=== PATIENT | female | born 1995 | race African-American/Black ===

== ENCOUNTER → 2023-03-01 09:33 | Outpatient (REF) | payer OTHER, SELFPAY | LOC: HO.CARD 09:33 | PROVIDERS: PCP Internal Medicine; Visit Provider Psychiatry & Neurology Neurology | DX: R55 Syncope and collapse (principal) | CPT/HCPCS: 93225 ==

== ENCOUNTER 2023-07-26 14:21 | Emergency (ER) | payer OTHER, SELFPAY ==
--- NOTE | 2023-07-26 14:32 | ECG_ITS ---
Test Reason : WEAKNESS Blood Pressure : / mmHG Vent. Rate : 083 BPM Atrial Rate : 083 BPM P-R Int : 174 ms QRS Dur : 082 ms QT Int : 378 ms P-R-T Axes : -04 067 015 degrees QTc Int : 444 ms Normal sinus rhythm Nonspecific T wave abnormality Abnormal ECG No previous ECGs available Referred By: Anurag Agudelo Electronically Signed By:Gustavo Meier
--- NOTE | 2023-07-26 14:35 | ED_ITS ---
HPI - General Adult General Chief complaint: Neuro Symptoms/Deficit Stated complaint: speech changes Time Seen by Provider: 07/26/23 14:39 Source: family Mode of arrival: wheelchair History of Present Illness HPI narrative: Pt was having EEG as outpatient for w/u of possible seizure and started to have slurred speech and tremors,this symtoms has been happening for at least 1 Month ,she was seen at [facility] and by our neurologist Dr Willoughby who scheduled the EEG.Franchesca tells me she has hx of migraine as well and she respond well to reglan Onset (ago): hour(s) (1) Radiation: non-radiation Severity: moderate Related Data Allergies Allergy/AdvReac Type Severity Reaction Status Date / Time sertraline [From Zoloft] AdvReac aphasia Verified 07/26/23 14:32 Review of Systems 2 ENT: Reports system reviewed and no additional complaints, except as documented Cardiovascular: Cardiovascular: Reports no additional cardiovascular complaints Neurologic: Comments: episodes of slurred speech ? seizure [facility] Past Medical History [facility] Narrative: migraine STERN Social History Social History Smoked in Last 30 Days: No Use of substances other than those prescribed or required for medical reasons: No Advance Directives: No Advance Directives Information Provided: No Patient : No Physical Exam ED Vital Signs: Vital Signs - 24 hr 07/26/23 14:43 07/26/23 16:25 07/26/23 18:44 Temperature 98 F 97.8 F Pulse Rate 74 80 74 Respiratory Rate 16 18 14 Blood Pressure 121/46 L 118/58 L 139/70 Pulse Oximetry 98 97 98 Oxygen Delivery Method Room Air Room Air Room Air 07/26/23 20:14 Temperature 98.0 F Pulse Rate 83 Respiratory Rate 18 Blood Pressure 125/66 Pulse Oximetry 100 Oxygen Delivery Method Room Air BMI result Body Mass Index 34.5 Const General: cooperative, comfortable and no acute distress Orientation/consciousness: patient oriented x3 HENMT Head: Yes normal to inspection General nose exam: Normal external nose present Face and sinus: Yes normal facial exam Mouth: Normal oral and palatal mucosa present Neck Neck: Yes normal visual inspection Chest Chest palpation & inspection: normal inspection of the chest Resp Effort & Inspection: normal respiratory effort Auscultation: clear to auscultation bilaterally Cardio Jugular venous distension: no JVD Rate: regular rate Rhythm: regular rhythm GI Inspection: Yes normal to inspection Palpation (GI): Soft to palpation Auscultation: normal bowel sounds Skin General skin exam: no rashes or lesions noted Lesions: no lesions Rashes: no rashes Wounds: no wounds Neuro General: patient oriented x3 Course Reevaluation(s) Reevaluation #1: received 1 mg of lorazepam much better,I spoke with her neurologist Dr dillard he tell me that pt had w/u at [facility] including cta head and neck normal,therefore I do not think I need to do imaging Time: 14:50 Reevaluation #2: stable sleeping Time: 15:30 Reevaluation #3: signed out to Dr Merna solorio pending waiting from record of [facility],I am off shift now Time: 16:08 Medications Administered Discontinued Medications Generic Name Dose Route Start Last Admin Trade Name Freq PRN Reason Stop Dose Admin Sodium Chloride 1,000 mls @ 999 mls/hr 07/26/23 14:45 07/26/23 15:50 Ns IVCONT 07/26/23 15:45 Infused .Q1H1M ELLE Infusion Lorazepam 1 mg 07/26/23 14:33 07/26/23 14:49 Lorazepam 2 Mg/Ml Vial IVPUSH 07/26/23 14:34 1 mg ONCE ONE Administration Meclizine HCl 50 mg 07/26/23 18:03 07/26/23 18:43 Meclizine Hcl 25 Mg Tablet PO 07/26/23 18:04 50 mg ONCE ONE Administration Medical Decision Making Medical Decision Making MDM Narrative: Patient presented with slurred speech after EEG weakness shakiness we get labs I will talk to the neurologist reviewed the records from [facility] -I received sign-out from Dr. Agudelo. -my interpretation of labs: Normal hematology, normal chemistry, urinalysis shows a small amount of leukocyte esterase but squamous epithelial cells are present as well. Patient has no UTI symptoms. Antibiotics not indicated. Toxicology negative. -patient was able to ambulate without any assistance to the bathroom per patient's techs a nurse. -I reviewed the records from [facility]. Patient has had multiple similar episodes, seen by Neurology, head CT scans in mid June do not show any acute abnormality -patient states that she feels much better than when she initially 1st came in, patient states she feels ready to be discharged. -discussed with the patient to call Dr. Dillard to schedule an appointment, they are still trying to figure out her dose for migraine medications. Differential Diagnosis Differential Diagnoses: The differential diagnosis associated with the presentation includes Differential diagnosis is broad including epilepsy/nonepileptic seizure/anxiety Admission/Observation Consideration of admission/observation: Escalation of care including admission/observation considered Consult Healthcare Provider Management of the patient was discussed with: Rn Psychiatric spoke with pt neurologist Lab Data 07/26/23 15:05 07/26/23 16:16 Labs: Lab Results 07/26/23 07/26/23 07/26/23 Range/Units 15:05 16:16 20:36 WBC 5.8 (4.8-10.8) X10*3/uL RBC 4.80 (4.20-5.50) X10*6/uL Hgb 12.8 (12.0-16.0) g/dl Hct 38.9 (37.0-47.0) % MCV 81.0 (80.0-98.0) fL MCH 26.7 L (27.0-33.0) pg MCHC 32.9 (31.0-35.0) g/dl RDW 14.3 (11.0-16.0) % Plt Count 314 (160-400) X10*3/uL MPV 10.2 (9.4-12.3) fL Immature Gran % (Auto) 0.2 (0.0-0.4) % Neut % (Auto) 34.5 L (45-73) % Lymph % (Auto) 52.8 H (20-40) % Bailey % (Auto) 8.9 (2-11) % Eos % (Auto) 3.1 (0-4) % Baso % (Auto) 0.5 (0-2) % Lymph # (Auto) 3.0 (1.2-4.9) X10*3/uL Bailey # (Auto) 0.5 (0.1-1.2) X10*3/uL Eos # (Auto) 0.2 (0.0-0.4) X10*3/uL Baso # (Auto) 0.0 (0.0-0.2) X10*3/uL Abs Immat Gran (auto) 0.01 (0.00-0.03) X10*3/uL Absolute Neuts (auto) 2.0 (2.0-8.3) x10*3/uL Absolute Nucleated RBC 0.000 (0.0-0.012) X10*3/uL Nucleated RBC % (auto) 0.0 (0.0-0.2) /100WBC Hold Purple Top SEE NOTE Sodium 140 (135-145) mmol/L Potassium 3.8 (3.3-5.1) mmol/L Chloride 111 H (96-108) mmol/L Carbon Dioxide 23 (22-29) mmol/L Anion Gap 10 L (12-20) BUN 8 L (9-16) mg/dL Creatinine 0.89 (0.5-1.4) mg/dL Estim Creat Clear Calc 117.2 Estimated GFR > 60 Random Glucose 77 (60-115) mg/dL Calcium 9.2 (8.4-10.2) mg/dL Total Bilirubin 0.6 (0.0-1.0) mg/dL AST 22 (5-31) U/L ALT 26 (0-31) U/L Alkaline Phosphatase 19 L (39-117) U/L Troponin I High Sens < 2.7 (<3.5-17.0) ng/L Total Protein 7.2 (6.5-8.0) g/dL Albumin 4.1 (3.5-5.0) g/dL Beta HCG, Quant < 2 mIU/mL Urine Color Yellow Urine Appearance Clear Urine pH 6.0 (5.0-9.0) Ur Specific Beeson 1.010 (1.005-1.025) Urine Protein Negative (Neg-Trace) mg/dL Urine Glucose (UA) Negative (Negative) mg/dL Urine Ketones Trace (Negative) mg/dL Urine Blood Negative (Negative) Urine Nitrite Negative (Negative) Ur Leukocyte Esterase Small (1+) H (Negative) Urine RBC 0-2 (0-2) /HPF Urine WBC 0-5 (0-5) /HPF Ur Squamous Epith Cells 3-5 (0-2) /HPF Urine Bacteria None Seen (None Seen) Hyaline Casts 0-2 (0-2) /LPF Urine Opiates Screen Not Detected (Not Detect) Urine Fentanyl Screen Not Detected (Not Detect) Ur Barbiturates Screen Not Detected (Not Detect) Ur Phencyclidine Scrn Not Detected (Not Detect) Ur Amphetamines Screen Not Detected (Not Detect) U Benzodiazepines Scrn Not Detected (Not Detect) Urine Cocaine Screen Not Detected (Not Detect) U Marijuana (THC) Screen Not Detected (Not Detect) Critical Care Time Critical Care Time Critical Care Time: Yes Total Critical Care Time: 60 Attestation: I have personally provided critical care time. Time includes review of lab data, radiology results, discussion with consultants, and monitoring for potential decompensation. Intervention performed as documented. Discharge Plan Discharge Clinical Impression: Seizure Patient Disposition: Home, Self-Care Instructions: Nonepileptic Seizures (ED) Additional Instructions: Please follow-up with your primary care physician tomorrow. If you have any worsening or new symptoms, please return to the emergency room or call 911 Referrals: Nael Dillard MD [Physician] - 07/29/23
[2023-07-26 14:43] VITALS: BP 121/46; PULSE 74; RESP 16; TEMP 36.6; O2SAT 98; BMI 34.5
[2023-07-26] MEDS: LORazepam 2 MG/ML VIAL 1 MG IVPUSH (14:49)
[2023-07-26] MEDS: 0.9 % Sodium Chloride 1,000 ML 999 ML IVCONT (14:49)
--- NOTE | 2023-07-26 14:56 | PC.NURSE ---
a&ox4. vss and up to date. nsr on the conveyor monitor. pt went to outpatient appt for an EEG to be completed. during EEG, pt had sudden onset speech changes, extreme headache, dizziness, and LE weakness bilaterally when flashing lights portion of the test was happening. pt verbalizing only sx include dizziness at this time. pt states lights are bothering her. lights dimmed to promote comfort. neuros intact. strength equal in the UE bilaterally. weakness noted to the LE bilaterally. face symmetrical. seizure precautions in place. pt passed swallow evaluation w/o difficulty. no sob/wob noted. respirations even and unlabored. 20gIV placed in the right AC. ativan/IVF administered per provider order. pt seen by ED provider. plan of care ongoing at this time. call olivarez placed within reach.
[2023-07-26 15:12] LABS: MANUAL DIFF FLAG NO
[2023-07-26 15:13] LABS: Basophils Percent Auto 0.5 % (0-2); Eosinophils Absolute Auto 0.2 X10*3/uL (0.0-0.4); Eosinophils Percent Auto 3.1 % (0-4); Hematocrit 38.9 % (37.0-47.0); Hemoglobin 12.8 g/dl (12.0-16.0); Imm Gran Abs Auto 0.01 X10*3/uL (0.00-0.03); Imm Gran Pct Auto 0.2 % (0.0-0.4); Lymphocytes Percent Auto 52.8 % (20-40); Mean Corpuscular HGB Conc 32.9 g/dl (31.0-35.0); Mean Corpuscular Hemoglobin 26.7 pg (27.0-33.0); Mean Platelet Volume 10.2 fL (9.4-12.3); Monocytes Absolute Auto 0.5 X10*3/uL (0.1-1.2); Monocytes Percent Auto 8.9 % (2-11); Neutrophils Percent Auto 34.5 % (45-73); Platelet Count 314 X10*3/uL (160-400); Red Cell Distribution Width 14.3 % (11.0-16.0); White Blood Count 5.8 X10*3/uL (4.8-10.8)
[2023-07-26 15:48] LABS: Troponin-I High Sensitivity < 2.7 ng/L (<3.5-17.0)
[2023-07-26 16:25] VITALS: BP 118/58; PULSE 80; RESP 18; TEMP 36.6; O2SAT 97
[2023-07-26 16:41] LABS: Alanine Aminotransferase 26 U/L (0-31); Albumin Level 4.1 g/dL (3.5-5.0); Alkaline Phosphatase 19 U/L (39-117); Anion Gap 10 (12-20); Aspartate Amino Transferase 22 U/L (5-31); Bilirubin Total 0.6 mg/dL (0.0-1.0); Blood Urea Nitrogen 8 mg/dL (9-16); Calcium 9.2 mg/dL (8.4-10.2); Carbon Dioxide 23 mmol/L (22-29); Chloride 111 mmol/L (96-108); Creatinine Clr Calc Pharmacy 117.2; Estimated Glomerular Filt Rate > 60; Glucose Random 77 mg/dL (60-115); Potassium 3.8 mmol/L (3.3-5.1); Sodium 140 mmol/L (135-145); Total Protein 7.2 g/dL (6.5-8.0)
[2023-07-26 16:47] LABS: HCG Quantitative < 2 mIU/mL
--- NOTE | 2023-07-26 17:34 | PC.NURSE ---
pt still verbalizing feeling extremely dizzy. LE still weak bilaterally - unable to lift. will notify provider. pt states dizziness does not worsen w/ movement as the sensation is constant. denies headache/change in vision. pt resting comfortably w/ the lights dimmed at this time. family bedside. call olivarez placed within reach.
[2023-07-26] MEDS: Meclizine HCl 25 MG TABLET 50 MG PO (18:43)
[2023-07-26 18:44] VITALS: BP 139/70; PULSE 74; RESP 14; O2SAT 98
--- NOTE | 2023-07-26 18:44 | PC.NURSE ---
pt medicated per provider order. effectiveness pending.
[2023-07-26 20:14] VITALS: BP 125/66; PULSE 83; RESP 18; TEMP 36.7; O2SAT 100
--- NOTE | 2023-07-26 20:20 | MHC.EDTECH ---
This tech took over care of patient at 1900,hourly rounds and vitals completed,patient got up to commode,urine sample obtained and sent to lab,
[2023-07-26 20:44] LABS: Appearance Urine Clear; Color Urine Yellow; Glucose Urine UA Negative (Negative); Leukocyte Esterase Urine Small (1+) (Negative); Nitrite Urine Negative (Negative); UMIC TRIGGER UACC YES; Urine Blood Negative (Negative); Urine Ketones Trace mg/dL (Negative); Urine Protein Negative (Neg-Trace)
[2023-07-26 20:51] LABS: Amphetamine Screen Urine Not Detected (Not Detect); Barbiturates, Urine Not Detected (Not Detect); Benzodiazepines Screen Urine Not Detected (Not Detect); Cannabinoid Screen Urine Not Detected (Not Detect); Cocaine Screen Urine Not Detected (Not Detect); Fentanyl, urine Not Detected (Not Detect); Opiate Screen Urine Not Detected (Not Detect); Phencyclidine Screen Urine Not Detected (Not Detect)
[2023-07-26 20:56] LABS: Bacteria Urine None Seen (None Seen); Hyaline Casts Urine 0-2 /LPF (0-2); RBC Urine 0-2 /HPF (0-2); UACC Culture Trigger YES; WBC Urine 0-5 /HPF (0-5)
[2023-07-26 22:21] VITALS: BP 103/54; PULSE 74; RESP 20; TEMP 36.6; O2SAT 100
[2023-07-30 07:48] LABS: Glucose, Whole Blood 69 mg/dL (60-115)
== END 2023-07-26 22:30 | disposition home or self-care (01) ==
PROVIDERS: Emergency Medicine; Emergency Provider Emergency Medicine
DX: R56.9 Unspecified convulsions (principal)
CPT/HCPCS: 36415; 80053; 80307; 81001; 82947; 84484; 84702; 85025; 87086; 93005; 96361; 96374; 99284; 99285; J2060

== ENCOUNTER → 2023-07-26 14:32 | Outpatient (BNV) | payer OTHER, SELFPAY | PROVIDERS: Emergency Provider Emergency Medicine; Visit Provider Internal Medicine Cardiovascular Disease | DX: R94.31 Abnormal electrocardiogram [ECG] [EKG] (principal) | CPT/HCPCS: 93010 ==

== ENCOUNTER 2023-08-07 11:12 | Outpatient (REF) | payer OTHER, SELFPAY | END 2023-08-07 11:13 | disposition home or self-care (01) | LOC: HO.LAB 11:12 | PROVIDERS: Visit Provider Registered Nurse | DX: Z13.89 Encounter for screening for other disorder (principal) ==

== ENCOUNTER 2023-10-21 13:35 | Outpatient (REF) | payer OTHER, SELFPAY ==
[2023-10-21 14:59] LABS: Estimated Average Glucose 111 mg/dL; Hemoglobin A1c % 5.5 % (<6.0)
[2023-10-26 14:28] LABS: Aldolase 5.9 U/L (<=8.1)
== END 2023-10-21 13:36 | disposition home or self-care (01) ==
LOC: HO.LAB 13:35
PROVIDERS: PCP Nurse Practitioner Family; Visit Provider Registered Nurse
DX: M79.10 Myalgia, unspecified site (principal)
CPT/HCPCS: 36415; 82085; 82550; 83036